=== PATIENT | male | born 1965 | race Caucasian/White ===

== ENCOUNTER 2016-08-20 09:24 | Emergency (ER) | payer OTHER, SELFPAY ==
[2016-08-20] MEDS ORDERED: Sodium Chloride 0.9% 1,000 ML ONE (10:11)
[2016-08-20] MEDS ORDERED: Ketorolac Tromethamine 30 MG/ML VIAL ONE (10:11)
[2016-08-20 10:15] LABS: #Basophils 0.1 thou/uL (0.0-0.2); #Eosinphils 0.1 thou/uL (0.0-0.7); #Lymphocytes 1.1 thou/uL (1.20-3.40); #Monocytes 0.5 thou/uL (0.11-0.59); #Neutrophils 2.8 thou/uL (1.40-6.50); %Basophils 1.3 % (0.0-1.0); %Eosinophils 2.1 % (0.0-10.0); %Lymphocytes 24.9 % (21.0-51.0); %Monocytes 11.1 % (0.0-10.0); Hematocrit 48.6 % (42.0-52.0); Red Blood Cell (RBC) Count 5.02 mill/uL (4.70-6.10); White Blood Cell (WBC) Count 4.5 thou/uL (4.8-10.8)
[2016-08-20 10:37] LABS: Methadone Not Detected (NotDetected); Methamphetamine Not Detected (NotDetected)
[2016-08-20 10:39] LABS: ALT (SGPT) 62 U/L (0-55); AST (SGOT) 104 U/L (5-34); Alkaline Phosphatase 78 U/L (40-150); Anion Gap 18 mmol/L (10-20); BUN (Urea Nitrogen) 5 mg/dL (8.9-20.6); Bilirubin, Total 0.4 mg/dL (0.2-1.2); Calc. Creatinine Clearance 0 mL/min (70-130); Calcium 8.9 mg/dL (7.8-10.44); Carbon Dioxide 24 mmol/L (22-29); Chloride 97 mmol/L (98-107); Estimated GFR-MDRD Greater than 90; Globulin 3.4 g/dL (2.4-3.5); Protein, Total 7.4 g/dL (6.0-8.3)
--- NOTE | 2016-08-20 11:26 | CT ---
HEAD CT NONCONTRAST: Clinical history: Injury. Head pain. FINDINGS: There is no evidence of intracranial hemorrhage, mass effect, or midline shift. 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 There is mild prominence of the ventricular system , more notable involving the left lateral ventricle. No acute fluid level of the paranasal sinuses. No depressed calvarial fracture or pneumocephalus. IMPRESSION: No acute intracranial abnormalities. POS: [facility]
== END 2016-08-20 14:22 | disposition home or self-care (01) ==
LOC: NAV ERS 09:24
DX: G89.29 Other chronic pain (principal); M54.6 Pain in thoracic spine; F10.129 Alcohol abuse with intoxication, unspecified; I10 Essential (primary) hypertension; Z87.891 Personal history of nicotine dependence
CPT/HCPCS: 70450; 80053; 80306; 80307; 85025; 93005; 96361; 96374; J1885; J7050

== ENCOUNTER 2016-08-23 13:13 | Emergency (ER) | payer SELFPAY ==
[2016-08-23] MEDS ORDERED: Sodium Chloride 0.9% 1,000 ML ONE (13:33)
[2016-08-23] MEDS ORDERED: Ketorolac Tromethamine 30 MG/ML VIAL ONE (13:33)
[2016-08-23 13:58] LABS: #Basophils 0.1 thou/uL (0.0-0.2); #Eosinphils 0.1 thou/uL (0.0-0.7); #Lymphocytes 1.4 thou/uL (1.20-3.40); #Monocytes 0.7 thou/uL (0.11-0.59); %Basophils 1.1 % (0.0-1.0); %Eosinophils 1.3 % (0.0-10.0); %Lymphocytes 19.2 % (21.0-51.0); Hematocrit 46.1 % (42.0-52.0); Mean Platelet Volume 6.2 fL (7.4-10.4); Red Blood Cell (RBC) Count 4.82 mill/uL (4.70-6.10); White Blood Cell (WBC) Count 7.2 thou/uL (4.8-10.8)
[2016-08-23 14:09] LABS: ALT (SGPT) 57 U/L (0-55); AST (SGOT) 96 U/L (5-34); Alkaline Phosphatase 69 U/L (40-150); Anion Gap 18 mmol/L (10-20); BUN (Urea Nitrogen) 6 mg/dL (8.9-20.6); Bilirubin, Total 0.4 mg/dL (0.2-1.2); Calc. Creatinine Clearance 0 mL/min (70-130); Calcium 9.2 mg/dL (7.8-10.44); Carbon Dioxide 25 mmol/L (22-29); Chloride 95 mmol/L (98-107); Estimated GFR-MDRD Greater than 90; Globulin 3.3 g/dL (2.4-3.5); Protein, Total 7.2 g/dL (6.0-8.3)
[2016-08-23 14:10] LABS: Troponin I 0.016 ng/mL (< 0.028)
--- NOTE | 2016-08-23 14:30 | RAD ---
FRONTAL VIEW CHEST: Comparison: 12-14-15 Indication: Chest wall pain. FINDINGS: There is no consolidation, effusion, or pneumothorax. Cardiac silhouette is accentuated by portable technique. IMPRESSION: No focal consolidation. POS: [facility]
== END 2016-08-23 16:05 | disposition home or self-care (01) ==
LOC: NAV ERS 13:13
DX: R07.9 Chest pain, unspecified (principal); M54.2 Cervicalgia; M54.5 Low back pain; F10.129 Alcohol abuse with intoxication, unspecified; K21.9 Gastro-esophageal reflux disease without esophagitis; I10 Essential (primary) hypertension; Z87.891 Personal history of nicotine dependence
CPT/HCPCS: 71010; 80053; 80307; 82553; 84484; 85025; 93005; 96361; 96374; J1885; J7050

== ENCOUNTER 2016-11-23 19:16 | Emergency (ER) | payer OTHER, SELFPAY ==
[2016-11-23] MEDS ORDERED: Silver Sulfadiazine 1% Cream 50 GM JAR ONE (19:37)
== END 2016-11-23 19:47 | disposition home or self-care (01) ==
LOC: NAV ERS 19:16
DX: T21.21XA Burn of second degree of chest wall, initial encounter (principal); T22.212A Burn of second degree of left forearm, initial encounter; I25.2 Old myocardial infarction; K21.9 Gastro-esophageal reflux disease without esophagitis; I10 Essential (primary) hypertension; Z87.891 Personal history of nicotine dependence; Z86.73 Personal history of transient ischemic attack (TIA), and cerebral infarction without residual deficits; X10.2XXA Contact with fats and cooking oils, initial encounter
CPT/HCPCS: 99283

== ENCOUNTER 2017-01-20 16:23 | Emergency (ER) | payer SELFPAY ==
[2017-01-20] MEDS ORDERED: Acetaminophen 500 MG TAB ONE (16:57)
--- NOTE | 2017-01-20 17:03 | RAD ---
RIGHT KNEE FOUR VIEWS: 01/20/17 HISTORY: Right knee injury. FINDINGS: Joint spaces are preserved. No acute fracture, dislocation, or fluid distention in the suprapatellar bursa are apparent. Mild osteophytosis of the tibial spine is evident. Chondroid lesion within the distal femur may represent an enchondroma. IMPRESSION: No acute osseous abnormalities are demonstrated. POS: [facility]
== END 2017-01-20 17:05 | disposition home or self-care (01) ==
LOC: NAV ERS 16:23
DX: S86.911A Strain of unspecified muscle(s) and tendon(s) at lower leg level, right leg, initial encounter (principal); I25.2 Old myocardial infarction; K21.9 Gastro-esophageal reflux disease without esophagitis; I10 Essential (primary) hypertension; Z87.891 Personal history of nicotine dependence; Z86.73 Personal history of transient ischemic attack (TIA), and cerebral infarction without residual deficits; W19.XXXA Unspecified fall, initial encounter

== ENCOUNTER 2018-08-09 16:24 | Emergency (ER) | payer SELFPAY ==
[2018-08-09] MEDS ORDERED: Nitroglycerin 0.4 MG TAB (25 Tab Bottle) ONE (16:52)
--- NOTE | 2018-08-09 17:13 | RAD ---
CHEST ONE VIEW: 08/09/18 HISTORY: Chest pain. COMPARISON: 10/15/16. FINDINGS: The cardiac silhouette is magnified by projection. Pulmonary vasculature is unremarkable. Mediastinum is midline. No lobar consolidation or evidence of pneumothorax. monitoring tech leads overlie the ch est. IMPRESSION: No active cardiopulmonary abnormalities are demonstrated. POS: [facility]
[2018-08-09 17:22] LABS: ALT (SGPT) 90 U/L (8-55); AST (SGOT) 155 U/L (5-34); Albumin 3.9 g/dL (3.5-5.0); Alkaline Phosphatase 87 U/L (40-150); Anion Gap 15 mmol/L (10-20); BUN (Urea Nitrogen) 5 mg/dL (8.4-25.7); Bilirubin, Total 0.4 mg/dL (0.2-1.2); CK (CPK) 295 U/L (30-200); Calc. Creatinine Clearance 0 mL/min (70-130); Calcium 9.4 mg/dL (7.8-10.44); Carbon Dioxide 26 mmol/L (22-29); Chloride 94 mmol/L (98-107); Estimated GFR-MDRD Greater than 90; Globulin 3.1 g/dL (2.4-3.5); Glucose 99 mg/dL (70-105); Lipase 14 U/L (8-78); Potassium 3.9 mmol/L (3.5-5.1); Sodium 131 mmol/L (136-145)
[2018-08-09 17:25] LABS: #Eosinphils 0.1 thou/uL (0.0-0.7); #Lymphocytes 1.2 thou/uL (1.20-3.40); #Monocytes 0.7 thou/uL (0.11-0.59); #Neutrophils 2.4 thou/uL (1.40-6.50); %Basophils 0.8 % (0.0-1.0); %Eosinophils 1.4 % (0.0-10.0); %Lymphocytes 27.4 % (21.0-51.0); %Monocytes 15.4 % (0.0-10.0); Hemoglobin 13.4 g/dL (14.0-18.0); Mean Corpuscular HGB CONC 33.1 g/dL (32.0-36.0); Mean Corpuscular Hemoglobin 31.8 pg (27.0-31.0); Mean Corpuscular Volume 96.2 fL (78.0-98.0); Mean Platelet Volume 6.9 fL (7.4-10.4); Platelet Count 166 thou/uL (130-400); RBC Distribution Width 11.9 % (11.5-14.5); Red Blood Cell (RBC) Count 4.22 mill/uL (4.70-6.10); White Blood Cell (WBC) Count 4.4 thou/uL (4.8-10.8)
== END 2018-08-09 18:39 | disposition short-term general hospital (02) ==
LOC: NAV ERS 16:24
DX: R07.2 Precordial pain (principal); I25.2 Old myocardial infarction; K21.9 Gastro-esophageal reflux disease without esophagitis; I10 Essential (primary) hypertension; F17.220 Nicotine dependence, chewing tobacco, uncomplicated; Z86.73 Personal history of transient ischemic attack (TIA), and cerebral infarction without residual deficits
CPT/HCPCS: 71045; 80053; 82550; 83690; 84484; 85025; 93005; 94760

== ENCOUNTER 2022-12-28 09:30 | Emergency (ER) | payer SELFPAY | END 2022-12-28 10:10 | disposition home or self-care (01) | LOC: NAV ERS 09:30 | DX: B02.9 Zoster without complications (principal); I10 Essential (primary) hypertension; F17.220 Nicotine dependence, chewing tobacco, uncomplicated; Z86.73 Personal history of transient ischemic attack (TIA), and cerebral infarction without residual deficits | CPT/HCPCS: 99282 ==

== ENCOUNTER 2023-03-29 09:05 | Emergency (ER) | payer SELFPAY | END 2023-03-29 09:40 | disposition home or self-care (01) | LOC: NAV ERS 09:05 | DX: S60.222A Contusion of left hand, initial encounter (principal); I10 Essential (primary) hypertension; F17.220 Nicotine dependence, chewing tobacco, uncomplicated; X58.XXXA Exposure to other specified factors, initial encounter ==

== ENCOUNTER 2024-05-29 13:59 | Emergency (ER) | payer SELFPAY ==
[2024-05-29] MEDS ORDERED: Ketorolac Tromethamine 30 MG (1 mL) VIAL ONE (15:29)
== END 2024-05-29 16:21 | disposition home or self-care (01) ==
LOC: NAV ERS 13:59
DX: M16.11 Unilateral primary osteoarthritis, right hip (principal); M19.90 Unspecified osteoarthritis, unspecified site; I10 Essential (primary) hypertension
CPT/HCPCS: 96372; 99283; J1885